=== PATIENT | female | born 1990 | race Hispanic/Latino ===

== ENCOUNTER → 2017-01-18 | Outpatient (CLI) | payer OTHER ==
[2017-01-18 20:05] LABS: FREE T4 1.53 NG/DL (0.76-1.46)
== END ==
LOC: M SMT 11:38
PROVIDERS: ATTEND Obstetrics & Gynecology
DX: Z31.61 Procreative counseling and advice using natural family planning (principal)

== ENCOUNTER → 2017-02-03 | Outpatient (REF) | payer OTHER | LOC: M LAB REF 16:54 | PROVIDERS: ATTEND Obstetrics & Gynecology | DX: Z12.4 Encounter for screening for malignant neoplasm of cervix (principal) ==